=== PATIENT | male | born 1990 | race Caucasian/White ===

== ENCOUNTER → 2016-10-17 | Outpatient (CLI) | payer OTHER ==
--- NOTE | 2016-10-17 13:04 | REP ---
Chest two views HISTORY: Chest pain Comparison: None The lungs are clear. The heart is normal in size. The pulmonary vasculature is normal in appearance. There is an old compression fracture of a mid thoracic vertebral body with minimal height loss. IMPRESSION: No acute disease. Signed by Mike Leija MD 10/17/2016 12:54 P
== END ==
LOC: M WUC 11:34
PROVIDERS: ATTEND Nurse Practitioner Family
DX: R07.9 Chest pain, unspecified (principal)

== ENCOUNTER → 2018-09-06 | Outpatient (CLI) | payer OTHER ==
[~2018-09-06] MED LIST: E-Z-GAS II EFFERVESCENT PACKET (SODIUM BICARB./CITRIC ACID/SIMETHICONE) As Ordered; E-Z-HD 98% w/w 340GM SUSP BTL As Ordered; E-Z-PAQUE 96% w/w SUSP 176GM BTL As Ordered
== END ==
LOC: M RAD 08:12
DX: K21.9 Gastro-esophageal reflux disease without esophagitis (principal); K44.9 Diaphragmatic hernia without obstruction or gangrene
CPT/HCPCS: 74241

== ENCOUNTER 2019-06-09 16:10 | Emergency (ER) | payer OTHER ==
[~2019-06-09] VITALS: Ht 182.9 cm; Wt 90.9 kg
[2019-06-09] MEDS ORDERED: ONDANSETRON 4MG/2ML VIAL (J2405) IV ONE (16:45)
--- NOTE | 2019-06-09 16:45 | REP ---
Right shoulder: Three views: History: Injury in a fall. Findings: Three views of the right shoulder demonstrate an anterior inferior glenohumeral dislocation without observable fracture. The acromioclavicular joint is normally aligned. Impression: Anterior inferior glenohumeral dislocation. No fracture seen. Electronically Signed by Frederick Aviles MD 06/09/2019 04:57 P
[2019-06-09] MEDS: MORPHINE 4 MG/ML 1ML VIAL/SYRINGE (J2270) IV PRN ×2 (16:50→17:12)
[2019-06-09] MEDS ORDERED: NORC1TAB7 PO (17:59)
--- NOTE | 2019-06-09 18:18 | REP ---
Right shoulder: Single view: History: Post reduction. Findings: Single AP view demonstrates normal alignment of the glenohumeral articulation. There is a Hill-Sachs impaction fracture deformity. Impression: Glenohumeral joint appears normally aligned. Hill-Sachs impaction fracture deformity is seen. Electronically Signed by Frederick Aviles MD 06/09/2019 06:20 P
[2019-06-09 18:20] VITALS: BP 131/89
== END 2019-06-09 18:35 | disposition home or self-care (01) ==
LOC: M ED 16:10
DX: S43.011A Anterior subluxation of right humerus, initial encounter (principal); S42.201A Unspecified fracture of upper end of right humerus, initial encounter for closed fracture; W19.XXXA Unspecified fall, initial encounter; Y92.9 Unspecified place or not applicable
CPT/HCPCS: 73020; 73030; 94760; 96374; 96375; 99284; J2270; J2405

== ENCOUNTER 2019-06-13 15:58 | Emergency (ER) | payer OTHER ==
[~2019-06-13] VITALS: Ht 182.9 cm; Wt 90.5 kg
[~2019-06-13 15:58] MED LIST changes: -E-Z-GAS II EFFERVESCENT PACKET (SODIUM BICARB./CITRIC ACID/SIMETHICONE) As Ordered; -E-Z-HD 98% w/w 340GM SUSP BTL As Ordered; -E-Z-PAQUE 96% w/w SUSP 176GM BTL As Ordered; +NORC1TAB7 PO
[2019-06-13] MEDS ORDERED: LORazepam 2 MG/ML VIAL (J2060) IV STA (16:10)
[2019-06-13] MEDS ORDERED: MORPHINE 4 MG/ML 1ML VIAL/SYRINGE (J2270) IV ONE ×2 (16:15→16:45)
--- NOTE | 2019-06-13 17:08 | REP ---
RIGHT SHOULDER, THREE VIEWS: Three views of the right shoulder are performed. There is anterior inferior dislocation of the humeral head from the glenoid fossa. There appears to be a Hill Sach's deformity of the superior lateral humeral head. No other significant findings are seen. Electronically Signed by Buster Santiago MD 06/15/2019 09:34 A
--- NOTE | 2019-06-13 17:13 | REP ---
Right shoulder post reduction single AP view: Comparison is the right shoulder study performed earlier today. The previous humeral head dislocation has been satisfactorily reduced. There is a humeral head Hill-Sachs deformity. Acromioclavicular joint is unremarkable. Mineralization is normal. Electronically Signed by Buster Espinal MD 06/13/2019 05:03 P
[2019-06-13 17:16] VITALS: BP 122/83
== END 2019-06-13 17:29 | disposition home or self-care (01) ==
LOC: M ED 15:58
DX: S43.004A Unspecified dislocation of right shoulder joint, initial encounter (principal); X58.XXXA Exposure to other specified factors, initial encounter; Y92.018 Other place in single-family (private) house as the place of occurrence of the external cause
CPT/HCPCS: 23650; 73020; 73030; 94760; 96374; 96375; 99284; J2060; J2270

== ENCOUNTER → 2020-02-21 | Outpatient (CLI) | payer OTHER ==
[~2020-02-21] MED LIST changes: +FAMO20TA PO
[2020-02-22 07:40] LABS: H PYLORI QUALITATIVE IgG NEGATIVE (NEGATIVE)
[2020-02-23 04:26] LABS: IGASUB2 195.8 mg/dL (73.2-301.2); IGASUB3 45.9 mg/dL (13.4-97.9); IgA SERUM (part of Subclasses) 243 mg/dL (90-386); TISSUE TRANSGLUTAMINASE IgA <2 U/mL (0-3); UNITSIGA FOR GLIADIN IGA 3 units (0-19); UNITSIGG FOR GLIADIN IGG 3 units (0-19)
== END ==
LOC: M LAB 11:51
PROVIDERS: ATTEND Internal Medicine Gastroenterology
DX: R19.4 Change in bowel habit (principal)

== ENCOUNTER → 2020-02-23 | Outpatient (REF) | payer OTHER | LOC: M LAB REF 11:24 | PROVIDERS: ATTEND Internal Medicine Gastroenterology | DX: R19.4 Change in bowel habit (principal) ==

== ENCOUNTER → 2020-02-28 | Outpatient (CLI) | payer OTHER | LOC: M LABSMTC 10:54 | PROVIDERS: ATTEND Anesthesiology | DX: Z01.818 Encounter for other preprocedural examination (principal); Z11.59 Encounter for screening for other viral diseases | CPT/HCPCS: C9803; U0003 ==

== ENCOUNTER 2020-03-02 11:44 | Day surgery (SDC) | payer OTHER ==
[~2020-03-02] VITALS: Ht 182.9 cm; Wt 86.6 kg
[~2020-03-02 11:44] MED LIST changes: +NS 1,000 ML IV ONE
[2020-03-02] MEDS ORDERED: propofoL 500 MG/50 ML VIAL As Ordered ONE (12:02)
[2020-03-02] MEDS ORDERED: LIDOCAINE 2% 100MG/5ML SDV (FOR ANES.) As Ordered ONE (12:03)
[2020-03-02] MEDS ORDERED: fentaNYL 100 MCG/2 ML INJECTION (J3010) As Ordered ONE (12:39)
--- NOTE | 2020-03-02 14:05 | ROOR ---
Patient Name: Jairo Matt Procedure Date: 03/02/2020 1:00 PM Date of : 1990 Age: 29 Room: [facility] Gender: Male Note Status: Finalized Procedure: Upper GI endoscopy Indications: Epigastric abdominal pain, Heartburn Providers: Fransisco Frazier MD Referring MD: Samy Haq MD Requesting Provider: Medicines: Monitored Anesthesia Care Complications: No immediate complications. Procedure: Pre-Anesthesia Assessment: - Prior to the procedure, a History and Physical was performed, and patient medications and allergies were reviewed. The patient is competent. The risks and benefits of the procedure and the sedation options and risks were discussed with the patient. All questions were answered and informed consent was obtained. Patient identification and proposed procedure were verified by the physician, the nurse and the anesthesiologist in the procedure room. Mental Status Examination: alert and oriented. Airway Examination: normal oropharyngeal airway and neck mobility. Respiratory Examination: clear to auscultation. CV Examination: normal. Prophylactic Antibiotics: The patient does not require prophylactic antibiotics. Prior Anticoagulants: The patient has taken no previous anticoagulant or antiplatelet agents. ASA Grade Assessment: II - A patient with mild systemic disease. After reviewing the risks and benefits, the patient was deemed in satisfactory condition to undergo the procedure. The anesthesia plan was to use monitored anesthesia care (MAC). Immediately prior to administration of medications, the patient was re-assessed for adequacy to receive sedatives. The heart rate, respiratory rate, oxygen saturations, blood pressure, adequacy of pulmonary ventilation, and response to care were monitored throughout the procedure. The physical status of the patient was re-assessed after the procedure. The Endoscope was introduced through the mouth, and advanced to the second part of duodenum. The upper GI endoscopy was accomplished without difficulty. The patient tolerated the procedure well. Findings: LA Grade A (one or more mucosal breaks less than 5 mm, not extending between tops of 2 mucosal folds) esophagitis with no bleeding was found in the distal esophagus. Biopsies were taken with a cold forceps for histology. Verification of patient identification for the specimen was done by the physician and nurse using the patient's name, date and medical record number. Estimated blood loss was minimal. The Z-line was irregular and was found 43 cm from the incisors. Scattered mild inflammation characterized by erythema and granularity was found in the gastric antrum. Biopsies were taken with a cold forceps for Helicobacter pylori testing. The ampulla, duodenal bulb and second portion of the duodenum were normal. Biopsies for histology were taken with a cold forceps for evaluation of celiac disease. Impression: - LA Grade A reflux esophagitis. Rule out Palomo's esophagus. Biopsied. - Z-line irregular, 43 cm from the incisors. - Gastritis. Biopsied. - Normal ampulla, duodenal bulb and second portion of the duodenum. Biopsied. Recommendation: - Patient has a contact number available for emergencies. The signs and symptoms of potential delayed complications were discussed with the patient. Return to normal activities tomorrow. Written discharge instructions were provided to the patient. - High fiber diet. - Continue present medications. - Follow an antireflux regimen. - Await pathology results. - Telephone GI clinic for pathology results in 2 weeks. - Return to primary care physician. Fransisco Frazier MD Fransisco Frazier MD 03/02/2020 2:05:03 PM Electronically signed by Fransisco Frazier MD Number of Addenda: 0 Note Initiated On: 03/02/2020 1:00 PM Estimated Blood Loss: Estimated blood loss was minimal.
--- NOTE | 2020-03-02 14:11 | ROOR ---
Patient Name: Jairo Matt Procedure Date: 03/02/2020 1:04 PM Date of : 1990 Age: 29 Gender: Male Note Status: Finalized Procedure: Colonoscopy Indications: Change in bowel habits Providers: Fransisco Frazier MD Referring MD: Samy Haq MD Requesting Provider: Medicines: Monitored Anesthesia Care Complications: No immediate complications. Procedure: Pre-Anesthesia Assessment: - Prior to the procedure, a History and Physical was performed, and patient medications and allergies were reviewed. The patient is competent. The risks and benefits of the procedure and the sedation options and risks were discussed with the patient. All questions were answered and informed consent was obtained. Patient identification and proposed procedure were verified by the physician, the nurse and the anesthesiologist in the procedure room. Mental Status Examination: alert and oriented. Airway Examination: normal oropharyngeal airway and neck mobility. Respiratory Examination: clear to auscultation. CV Examination: normal. Prophylactic Antibiotics: The patient does not require prophylactic antibiotics. Prior Anticoagulants: The patient has taken no previous anticoagulant or antiplatelet agents. ASA Grade Assessment: II - A patient with mild systemic disease. After reviewing the risks and benefits, the patient was deemed in satisfactory condition to undergo the procedure. The anesthesia plan was to use monitored anesthesia care (MAC). Immediately prior to administration of medications, the patient was re-assessed for adequacy to receive sedatives. The heart rate, respiratory rate, oxygen saturations, blood pressure, adequacy of pulmonary ventilation, and response to care were monitored throughout the procedure. The physical status of the patient was re-assessed after the procedure. The Colonoscope was introduced through the anus and advanced to the terminal ileum, with identification of the appendiceal orifice and IC valve. The colonoscopy was performed without difficulty. The patient tolerated the procedure well. The quality of the bowel preparation was good. The terminal ileum, ileocecal valve, appendiceal orifice, and rectum were photographed. Scope insertion time was 3 minutes. Scope withdrawal time was 9 minutes. The total duration of the procedure was 12 minutes. Findings: The perianal and digital rectal examinations were normal. The terminal ileum appeared normal. Patchy mild mucosal changes characterized by altered vascularity and erythema were found in the rectum. Biopsies for histology were taken with a cold forceps from the right colon, left colon and rectosigmoid colon for evaluation of microscopic colitis. Non-bleeding external and internal hemorrhoids were found during retroflexion. The hemorrhoids were small. Impression: - The examined portion of the ileum was normal. - Patchy mild mucosal changes were found in the rectum secondary to proctitis. Biopsied. - Non-bleeding external and internal hemorrhoids. Recommendation: - Patient has a contact number available for emergencies. The signs and symptoms of potential delayed complications were discussed with the patient. Return to normal activities tomorrow. Written discharge instructions were provided to the patient. - High fiber diet. - Continue present medications. - Await pathology results. - Repeat colonoscopy at age 49 for screening purposes. - Telephone GI clinic for pathology results in 2 weeks. - Return to primary care physician. Fransisco Frazier MD Fransisco Frazier MD 03/02/2020 2:11:21 PM Electronically signed by Fransisco Frazier MD Number of Addenda: 0 Note Initiated On: 03/02/2020 1:04 PM Estimated Blood Loss: Estimated blood loss was minimal.
[2020-03-02 14:41] VITALS: BP 118/83
== END 2020-03-02 14:40 | disposition home or self-care (01) ==
LOC: M OPP 11:44
PROVIDERS: ATTEND Internal Medicine Gastroenterology
DX: K62.89 Other specified diseases of anus and rectum (principal); K64.8 Other hemorrhoids; R19.4 Change in bowel habit; R19.2 Visible peristalsis; R10.13 Epigastric pain; K29.70 Gastritis, unspecified, without bleeding; K22.8 Other specified diseases of esophagus; K21.0 Gastro-esophageal reflux disease with esophagitis
CPT/HCPCS: 43239; 45380; 88305; J3010

== ENCOUNTER → 2020-08-22 | Outpatient (REF) | payer OTHER ==
[~2020-08-22] MED LIST changes: -NS 1,000 ML IV ONE
== END ==
LOC: M LAB REF 11:22
PROVIDERS: ATTEND Family Medicine
DX: K58.1 Irritable bowel syndrome with constipation (principal); R10.9 Unspecified abdominal pain

== ENCOUNTER 2021-04-01 05:09 | Emergency (ER) | payer OTHER ==
[~2021-04-01] VITALS: Ht 182.9 cm; Wt 89.3 kg
--- NOTE | 2021-04-01 06:31 | REPVR ---
PROCEDURE INFORMATION: Exam: XR Right Shoulder Exam date and time: 04/01/21 (5:23am) Age: 30 years old Clinical indication: Right shoulder pain. Possible dislocation. TECHNIQUE: Imaging protocol: XR Right shoulder Views: 2 or more views COMPARISON: Right shoulder plain films of 06/09/19 FINDINGS: Bones/joints: Unremarkable. No acute fracture nor dislocation. Soft tissues: Unremarkable. IMPRESSION: No acute findings. Electronically signed by: Elba Vega On 04/01/2021 06:30:12 AM
[2021-04-01 06:52] VITALS: BP 111/59
== END 2021-04-01 06:53 | disposition home or self-care (01) ==
LOC: M ED 05:09
DX: S43.001A Unspecified subluxation of right shoulder joint, initial encounter (principal); X50.0XXA Overexertion from strenuous movement or load, initial encounter; Y92.019 Unspecified place in single-family (private) house as the place of occurrence of the external cause; Y93.61 Activity, american tackle football; Y99.9 Unspecified external cause status; K21.9 Gastro-esophageal reflux disease without esophagitis

== ENCOUNTER → 2021-05-18 | Outpatient (REF) | payer OTHER | LOC: M LAB REF 12:27 | PROVIDERS: ATTEND Internal Medicine Gastroenterology | DX: R10.84 Generalized abdominal pain (principal) ==

== ENCOUNTER → 2024-10-05 | Outpatient (CLI) | payer OTHER ==
[~2024-10-05] MED LIST changes: +E-Z-PAQUE 96% w/w SUSP 176GM BTL As Ordered ONE
== END ==
LOC: M RAD 08:01
PROVIDERS: ATTEND Internal Medicine Gastroenterology
DX: R19.7 Diarrhea, unspecified (principal); R14.0 Abdominal distension (gaseous); K58.9 Irritable bowel syndrome, unspecified; A04.9 Bacterial intestinal infection, unspecified